=== PATIENT | male | born 1980 | race Caucasian/White ===

== ENCOUNTER 2016-04-07 06:15 | Emergency (ER) | payer MEDICAID ==
[~2016-04-07] VITALS: Ht 167.6 cm; Wt 86.4 kg
[~2016-04-07 06:15] MED LIST: BUPR-93 PO; DIVA500T35 PO
[2016-04-07 06:39] VITALS: BP 129/68
[2016-04-07] MEDS ORDERED: IBUPROFEN 600 MG TABLET PO ONE (06:45)
[2016-04-07] MEDS ORDERED: HYDROCODONE/ACETAMINOPHEN 5-325 MG TABLET PO ONE (06:45)
== END 2016-04-07 07:03 | disposition home or self-care (01) ==
LOC: EMS 06:16
DX: M25.522 Pain in left elbow (principal); F31.9 Bipolar disorder, unspecified; J45.909 Unspecified asthma, uncomplicated; Z88.8 Allergy status to other drugs, medicaments and biological substances
CPT/HCPCS: 29105; 99283

== ENCOUNTER 2016-05-17 16:48 | Inpatient (IN) | payer MEDICAID ==
[~2016-05-17] VITALS: Ht 167.6 cm; Wt 88.9 kg
[2016-05-17] MEDS ORDERED: LORazepam 2 MG TABLET PO PRN (17:30)
[2016-05-17 17:51] VITALS: BP 130/80
[2016-05-17] MEDS ORDERED: -PHARMACY VACCINE NOTE- MISC ONE ×2 (20:00)
[2016-05-17] MEDS: ZOLPIDEM TARTRATE 10 MG TABLET PO PRN (22:43)
[2016-05-18 05:56] VITALS: BP 136/60
[2016-05-18 08:28] LABS: BASOPHILS % (AUTO) 0.6 % (0.0-2.0); EOSINOPHILS % (AUTO) 2.2 % (1.0-6.0); HEMATOCRIT 41.1 % (41-53); HEMOGLOBIN 13.3 g/dL (13.5-17.5); LYMPHOCYTES # (AUTO) 2.5 K/uL (1.0-4.8); LYMPHOCYTES % (AUTO) 43.1 % (22.0-44.0); MEAN CORPUSCULAR HEMOGLOBIN 27.1 pg (26.0-34.0); MEAN CORPUSCULAR HGB CONC 32.4 G/dL (31.0-37.0); MEAN CORPUSCULAR VOLUME 84 fL (80-100); MONOCYTES # (AUTO) 0.4 K/uL (0.1-1.0); MONOCYTES % (AUTO) 7.1 % (2.0-9.0); NEUTROPHILS # (AUTO) 2.7 K/uL (1.8-7.7); PLATELET COUNT (AUTO) 199 K/uL (150-450); RED BLOOD CELL COUNT(AUTO) 4.92 MIL/uL (4.50-5.90); RED CELL DISTRIBUTION WIDTH 12.7 % (11.5-14.5); WHITE BLOOD COUNT (AUTO) 5.8 K/uL (4.5-11.0)
[2016-05-18 08:52] LABS: HEMOGLOBIN A1C 6.1 % (4.5-6.2)
[2016-05-18 09:00] VITALS: BP 129/68
[2016-05-18] MEDS ORDERED: MAG HYDROX/AL HYDROX/SIMETH ES 30 ML SUSPENSION UDCUP PO PRN (09:15)
[2016-05-18] MEDS ORDERED: ALBUTEROL SULFATE HFA 90 MCG/PUFF 8 GM INHALER IH PRN (09:15)
[2016-05-18] MEDS ORDERED: MAGNESIUM HYDROXIDE SUSPENSION 30 ML UDCUP PO PRN (09:15)
[2016-05-18] MEDS ORDERED: CloNIDine HCL 0.1 MG TABLET PO PRN (09:15)
[2016-05-18] MEDS ORDERED: PETROLATUM,WHITE 71 GM JELLY TP PRN (09:15)
[2016-05-18] MEDS ORDERED: LOPERAMIDE HCL 2 MG CAPSULE PO PRN (09:15)
[2016-05-18] MEDS ORDERED: BACITRACIN 28.4 GM OINTMENT TP PRN (09:15)
[2016-05-18] MEDS ORDERED: BENZOCAINE/MENTHOL LOZENGE MM PRN (09:15)
[2016-05-18] MEDS ORDERED: ACETAMINOPHEN 325 MG TABLET PO PRN (09:15)
[2016-05-18] MEDS ORDERED: ONDANSETRON HCL 4 MG TABLET PO PRN (09:15)
[2016-05-18 09:25] LABS: ALANINE AMINOTRANSFERASE 283 U/L (12-78); ALBUMIN 3.7 g/dL (3.4-5.0); ANION GAP 8 mmol/L (8-16); ASPARTATE AMINOTRANSFERASE 115 U/L (15-37); BILIRUBIN,TOTAL 0.7 mg/dL (0.1-1.0); CALCIUM, TOTAL 9.1 mg/dL (8.8-10.5); CARBON DIOXIDE 30 mmol/L (22-29); CHLORIDE 106 mmol/L (98-107); CHOL/HDL RATIO 4.5 (4.2-7.3); GLOMERULAR FILTR. RATE CALC > 60 mL/min (>60); POTASSIUM 4.4 mmol/L (3.5-5.1); SODIUM SERUM 144 mmol/L (136-145); THYROID STIMULATING HORMONE 1.59 uIU/mL (0.36-3.74); TOTAL PROTEIN, SERUM 7.4 g/dL (6.4-8.2); UREA NITROGEN, BLOOD 11 mg/dL (7-18)
[2016-05-18 16:00] VITALS: BP 117/78
[2016-05-18] MEDS: IBUPROFEN 600 MG TABLET PO PRN (18:11)
[2016-05-18] MEDS: DIVALPROEX SODIUM 500 MG ER TABLET PO SCH (20:49)
[2016-05-18] MEDS: ZOLPIDEM TARTRATE 10 MG TABLET PO PRN (22:15)
[2016-05-19 06:00] VITALS: BP 130/82
[2016-05-19 08:52] VITALS: BP 120/68
[2016-05-19] MEDS: BuPROPion HCL XL 150 MG ER TABLET PO SCH (09:26)
[2016-05-19] MEDS: IBUPROFEN 600 MG TABLET PO PRN ×2 (10:57→17:24)
[2016-05-19 16:18] VITALS: BP 118/66
[2016-05-19 17:25] VITALS: BP 130/78
[2016-05-19] MEDS: ZOLPIDEM TARTRATE 10 MG TABLET PO PRN (20:39)
[2016-05-19] MEDS: DIVALPROEX SODIUM 500 MG ER TABLET PO SCH (20:39)
[2016-05-20 06:33] VITALS: BP 133/72
[2016-05-20] MEDS: IBUPROFEN 600 MG TABLET PO PRN (07:00)
[2016-05-20 07:47] LABS: BASOPHILS % (AUTO) 0.7 % (0.0-2.0); EOSINOPHILS % (AUTO) 1.8 % (1.0-6.0); HEMATOCRIT 39.5 % (41-53); LYMPHOCYTES # (AUTO) 2.7 K/uL (1.0-4.8); LYMPHOCYTES % (AUTO) 44.2 % (22.0-44.0); MEAN CORPUSCULAR HEMOGLOBIN 27.2 pg (26.0-34.0); MEAN CORPUSCULAR HGB CONC 32.8 G/dL (31.0-37.0); MEAN CORPUSCULAR VOLUME 83 fL (80-100); MONOCYTES # (AUTO) 0.4 K/uL (0.1-1.0); MONOCYTES % (AUTO) 6.4 % (2.0-9.0); NEUTROPHILS # (AUTO) 2.9 K/uL (1.8-7.7); NEUTROPHILS % (AUTO) 46.9 % (40.0-70.0); PLATELET COUNT (AUTO) 213 K/uL (150-450); RED BLOOD CELL COUNT(AUTO) 4.77 MIL/uL (4.50-5.90); RED CELL DISTRIBUTION WIDTH 12.6 % (11.5-14.5); WHITE BLOOD COUNT (AUTO) 6.1 K/uL (4.5-11.0)
[2016-05-20 08:23] VITALS: BP 131/83
[2016-05-20 09:10] LABS: ALANINE AMINOTRANSFERASE 209 U/L (12-78); ALBUMIN 3.6 g/dL (3.4-5.0); ANION GAP 9 mmol/L (8-16); ASPARTATE AMINOTRANSFERASE 48 U/L (15-37); BILIRUBIN,TOTAL 0.5 mg/dL (0.1-1.0); CALCIUM, TOTAL 8.9 mg/dL (8.8-10.5); CARBON DIOXIDE 27 mmol/L (22-29); CHLORIDE 111 mmol/L (98-107); CREATININE 0.87 mg/dL (0.60-1.30); GLOMERULAR FILTR. RATE CALC > 60 mL/min (>60); POTASSIUM 4.5 mmol/L (3.5-5.1); SODIUM SERUM 147 mmol/L (136-145); TOTAL PROTEIN, SERUM 7.4 g/dL (6.4-8.2); UREA NITROGEN, BLOOD 14 mg/dL (7-18); VALPROIC ACID 88 mcg/mL (50-100)
[2016-05-20] MEDS: BuPROPion HCL XL 150 MG ER TABLET PO SCH (09:13)
[2016-05-20 16:27] VITALS: BP 134/87
== END 2016-05-20 16:30 | disposition home or self-care (01) | DRG 750 ==
LOC: B2S 17:50 → EDSTATUS 18:47 → B3A 05-18 17:19
PROVIDERS: ADMIT Psychiatry & Neurology Child & Adolescent Psychiatry; ATTEND Psychiatry & Neurology Child & Adolescent Psychiatry
DX: F25.0 Schizoaffective disorder, bipolar type (principal); Z91.14 Patient's other noncompliance with medication regimen; F20.0 Paranoid schizophrenia; F60.3 Borderline personality disorder; G47.00 Insomnia, unspecified; J45.909 Unspecified asthma, uncomplicated; K59.00 Constipation, unspecified; Z81.8 Family history of other mental and behavioral disorders; Z91.5 Personal history of self-harm; Z88.8 Allergy status to other drugs, medicaments and biological substances
CPT/HCPCS: 83036; 84439; 84443

== ENCOUNTER 2016-05-22 15:11 | Emergency (ER) | payer MEDICAID ==
[~2016-05-22] VITALS: Ht 167.6 cm; Wt 90.0 kg
[2016-05-22] MEDS ORDERED: OxyCODONE HCL/ACETAMINOPHEN 5-325 MG TABLET PO ONE (18:00)
[2016-05-22 18:32] VITALS: BP 121/74
== END 2016-05-22 18:52 | disposition home or self-care (01) ==
LOC: EMS 15:12
DX: S46.912A Strain of unspecified muscle, fascia and tendon at shoulder and upper arm level, left arm, initial encounter (principal); G89.29 Other chronic pain; J45.909 Unspecified asthma, uncomplicated; Z88.8 Allergy status to other drugs, medicaments and biological substances; X58.XXXA Exposure to other specified factors, initial encounter; Y93.89 Activity, other specified; Y92.89 Other specified places as the place of occurrence of the external cause; Y99.8 Other external cause status
CPT/HCPCS: 99282

== ENCOUNTER 2016-07-07 12:04 | Emergency (ER) | payer MEDICAID, OTHER ==
[~2016-07-07] VITALS: Ht 160 cm; Wt 84.0 kg
[2016-07-07] MEDS ORDERED: ONDANSETRON HCL 4 MG/2 ML VIAL IVP ONE (12:45)
[2016-07-07] MEDS ORDERED: SODIUM CHLORIDE 0.9% 1,000 ML IV ONE (12:45)
[2016-07-07 12:57] LABS: BASOPHILS % (AUTO) 0.5 % (0.0-2.0); EOSINOPHILS % (AUTO) 0.4 % (1.0-6.0); HEMOGLOBIN 14.6 g/dL (13.5-17.5); LYMPHOCYTES # (AUTO) 1.4 K/uL (1.0-4.8); LYMPHOCYTES % (AUTO) 24.2 % (22.0-44.0); MEAN CORPUSCULAR HEMOGLOBIN 26.9 pg (26.0-34.0); MEAN CORPUSCULAR HGB CONC 32.4 G/dL (31.0-37.0); MEAN CORPUSCULAR VOLUME 83 fL (80-100); MONOCYTES # (AUTO) 0.4 K/uL (0.1-1.0); MONOCYTES % (AUTO) 6.7 % (2.0-9.0); NEUTROPHILS # (AUTO) 3.9 K/uL (1.8-7.7); NEUTROPHILS % (AUTO) 68.2 % (40.0-70.0); PLATELET COUNT (AUTO) 193 K/uL (150-450); RED BLOOD CELL COUNT(AUTO) 5.41 MIL/uL (4.50-5.90); RED CELL DISTRIBUTION WIDTH 13.8 % (11.5-14.5); WHITE BLOOD COUNT (AUTO) 5.8 K/uL (4.5-11.0)
[2016-07-07 13:09] LABS: ANION GAP 10 mmol/L (8-16); CALCIUM, TOTAL 9.8 mg/dL (8.8-10.5); CARBON DIOXIDE 29 mmol/L (22-29); CHLORIDE 103 mmol/L (98-107); CREATININE 1.02 mg/dL (0.60-1.30); GLOMERULAR FILTR. RATE CALC > 60 mL/min (>60); POTASSIUM 4.4 mmol/L (3.5-5.1); SODIUM SERUM 142 mmol/L (136-145); UREA NITROGEN, BLOOD 15 mg/dL (7-18)
[2016-07-07 13:24] LABS: GLUCOSE, URINE (UA) NEGATIVE (NEGATIVE); KETONES,URINE 15 mg/dL (NEGATIVE); LEUKOCYTE ESTERASE ,URINE SMALL (NEGATIVE); OCCULT BLOOD,URINE NEGATIVE (NEGATIVE); PROTEIN,URINE TRACE (NEGATIVE)
[2016-07-07 13:33] LABS: ALANINE AMINOTRANSFERASE 149 U/L (12-78); ALBUMIN 4.2 g/dL (3.4-5.0); ASPARTATE AMINOTRANSFERASE 75 U/L (15-37); BILIRUBIN,TOTAL 0.8 mg/dL (0.1-1.0); CREATINE KINASE, TOTAL 169 U/L (39-308); TOTAL PROTEIN, SERUM 8.8 g/dL (6.4-8.2); VALPROIC ACID 101 mcg/mL (50-100)
[2016-07-07 13:35] LABS: CREATINE KINASE MB < 0.5 ng/mL (0-5)
[2016-07-07 13:37] LABS: ADD UA MICROSCOPIC YES; APPEARANCE,URINE HAZY (CLEAR)
[2016-07-07 13:38] LABS: RBC,URINE None Seen /HPF (0-2)
[2016-07-07 13:40] LABS: SQUAMOUS EPITHELIAL CELL,UR Few /LPF (None Seen)
[2016-07-07] MEDS ORDERED: CefTRIAXone 1 GM/DEXTROSE 50 ML IV ONE (14:30)
[2016-07-07 14:55] VITALS: BP 126/79
== END 2016-07-07 16:40 | disposition home or self-care (01) ==
LOC: EMS 12:07
DX: T42.6X1A Poisoning by other antiepileptic and sedative-hypnotic drugs, accidental (unintentional), initial encounter (principal); J45.909 Unspecified asthma, uncomplicated; R11.2 Nausea with vomiting, unspecified; Z88.8 Allergy status to other drugs, medicaments and biological substances; Y92.89 Other specified places as the place of occurrence of the external cause
CPT/HCPCS: 36415; 71010; 80053; 80164; 81001; 82550; 82553; 83690; 84484; 85025; 87086; 93005; 96361; 96365; 96375; 99285; J0696; J2405; J7030

== ENCOUNTER 2016-07-23 16:31 | Emergency (ER) | payer OTHER ==
[~2016-07-23] VITALS: Ht 167.6 cm; Wt 85.0 kg
[2016-07-23 19:03] LABS: BASOPHILS % (AUTO) 0.5 % (0.0-2.0); HEMATOCRIT 40.4 % (41-53); HEMOGLOBIN 13.1 g/dL (13.5-17.5); LYMPHOCYTES # (AUTO) 2.7 K/uL (1.0-4.8); LYMPHOCYTES % (AUTO) 40.9 % (22.0-44.0); MEAN CORPUSCULAR HGB CONC 32.4 G/dL (31.0-37.0); MEAN CORPUSCULAR VOLUME 83 fL (80-100); MONOCYTES # (AUTO) 0.5 K/uL (0.1-1.0); MONOCYTES % (AUTO) 8.3 % (2.0-9.0); NEUTROPHILS # (AUTO) 3.2 K/uL (1.8-7.7); NEUTROPHILS % (AUTO) 49.3 % (40.0-70.0); PLATELET COUNT (AUTO) 168 K/uL (150-450); RED BLOOD CELL COUNT(AUTO) 4.84 MIL/uL (4.50-5.90); RED CELL DISTRIBUTION WIDTH 14.1 % (11.5-14.5); WHITE BLOOD COUNT (AUTO) 6.5 K/uL (4.5-11.0)
[2016-07-23 19:14] LABS: ANION GAP 9 mmol/L (8-16); CALCIUM, TOTAL 9.1 mg/dL (8.8-10.5); CARBON DIOXIDE 29 mmol/L (22-29); CHLORIDE 105 mmol/L (98-107); CREATININE 0.92 mg/dL (0.60-1.30); GLOMERULAR FILTR. RATE CALC > 60 mL/min (>60); SODIUM SERUM 143 mmol/L (136-145); UREA NITROGEN, BLOOD 14 mg/dL (7-18)
[2016-07-23 19:21] LABS: ALANINE AMINOTRANSFERASE 105 U/L (12-78); ALBUMIN 3.8 g/dL (3.4-5.0); ASPARTATE AMINOTRANSFERASE 40 U/L (15-37); BILIRUBIN,TOTAL 0.2 mg/dL (0.1-1.0); TOTAL PROTEIN, SERUM 7.9 g/dL (6.4-8.2)
[2016-07-23 19:34] LABS: VALPROIC ACID 64 mcg/mL (50-100)
[2016-07-23 20:02] VITALS: BP 132/68
[2016-07-23] MEDS ORDERED: LOPERAMIDE HCL 2 MG CAPSULE PO ONE (20:45)
== END 2016-07-23 21:08 | disposition home or self-care (01) ==
LOC: EMS 16:32
DX: R19.7 Diarrhea, unspecified (principal); J45.909 Unspecified asthma, uncomplicated; Z88.8 Allergy status to other drugs, medicaments and biological substances
CPT/HCPCS: 99284

== ENCOUNTER 2016-08-06 10:57 | Emergency (ER) | payer OTHER ==
[~2016-08-06] VITALS: Ht 167.6 cm; Wt 82.3 kg
[2016-08-06 11:16] VITALS: BP 119/75
[2016-08-06] MEDS ORDERED: HYDROCODONE/ACETAMINOPHEN 10-325 MG TABLET PO ONE (11:30)
[2016-08-06] MEDS ORDERED: KETOROLAC TROMETHAMINE 60 MG/2 ML VIAL IM ONE (11:30)
== END 2016-08-06 12:03 | disposition home or self-care (01) ==
LOC: EMS 10:59
DX: S33.5XXA Sprain of ligaments of lumbar spine, initial encounter (principal); M54.5 Low back pain; M62.838 Other muscle spasm; F41.9 Anxiety disorder, unspecified; F31.9 Bipolar disorder, unspecified; J45.909 Unspecified asthma, uncomplicated; Z88.8 Allergy status to other drugs, medicaments and biological substances; Z90.49 Acquired absence of other specified parts of digestive tract; V89.0XXA Person injured in unspecified motor-vehicle accident, nontraffic, initial encounter; Y93.89 Activity, other specified; Y92.413 State road as the place of occurrence of the external cause; Y99.9 Unspecified external cause status
CPT/HCPCS: 96372; 99283; J1885

== ENCOUNTER 2016-08-13 19:37 | Emergency (ER) | payer OTHER ==
[~2016-08-13] VITALS: Ht 167.6 cm; Wt 84.0 kg
[2016-08-13] MEDS ORDERED: NAPR-58 PO (19:49)
[2016-08-13] MEDS ORDERED: BACL10TA PO (19:49)
[2016-08-13] MEDS ORDERED: KETOROLAC TROMETHAMINE 30 MG/ML VIAL IM ONE (20:45)
[2016-08-13 21:18] VITALS: BP 125/69
== END 2016-08-13 21:24 | disposition home or self-care (01) ==
LOC: EDUNIT# 19:37 → EMS 19:39
DX: M54.5 Low back pain (principal); G89.29 Other chronic pain; J45.909 Unspecified asthma, uncomplicated; Z88.8 Allergy status to other drugs, medicaments and biological substances; V89.2XXA Person injured in unspecified motor-vehicle accident, traffic, initial encounter; Y93.89 Activity, other specified; Y92.89 Other specified places as the place of occurrence of the external cause; Y99.8 Other external cause status
CPT/HCPCS: 96372; 99283; J1885

== ENCOUNTER 2016-09-19 12:50 | Emergency (ER) | payer OTHER ==
[~2016-09-19] VITALS: Ht 172.7 cm; Wt 84.5 kg
[~2016-09-19 12:50] MED LIST changes: +BACL10TA PO; +NAPR-58 PO
[2016-09-19] MEDS ORDERED: ONDANSETRON HCL 4 MG/2 ML VIAL IVP ONE (13:30)
[2016-09-19] MEDS ORDERED: DIPHENOXYLATE/ATROP 2.5-0.025 MG TABLET PO ONE (13:30)
[2016-09-19] MEDS ORDERED: SODIUM CHLORIDE 0.9% 1,000 ML IV ONE (13:30)
[2016-09-19] MEDS ORDERED: ACETAMINOPHEN 500 MG TABLET PO ONE (13:30)
[2016-09-19 13:56] LABS: BASOPHILS # (AUTO) 0.01 K/uL (0.00-0.20); BASOPHILS % (AUTO) 0.1 % (0.0-2.0); EOSINOPHILS # (AUTO) 0.03 K/uL (0.00-0.70); EOSINOPHILS % (AUTO) 0.48 % (1.0-6.0); HEMATOCRIT 37.2 % (41-53); HEMOGLOBIN 12.5 g/dL (13.5-17.5); LYMPHOCYTES # (AUTO) 1.2 K/uL (1.0-4.8); LYMPHOCYTES % (AUTO) 23.9 % (22.0-44.0); MEAN CORPUSCULAR HEMOGLOBIN 28.5 pg (26.0-34.0); MEAN CORPUSCULAR HGB CONC 33.5 G/dL (31.0-37.0); MEAN CORPUSCULAR VOLUME 85 fL (80-100); MONOCYTES # (AUTO) 0.3 K/uL (0.1-1.0); MONOCYTES % (AUTO) 6.6 % (2.0-9.0); NEUTROPHILS # (AUTO) 3.6 K/uL (1.8-7.7); NEUTROPHILS % (AUTO) 68.9 % (40.0-70.0); PLATELET COUNT (AUTO) 106 K/uL (150-450); RED BLOOD CELL COUNT(AUTO) 4.37 MIL/uL (4.50-5.90); RED CELL DISTRIBUTION WIDTH 13.5 % (11.5-14.5); WHITE BLOOD COUNT (AUTO) 5.2 K/uL (4.5-11.0)
[2016-09-19 14:09] VITALS: BP 114/69
[2016-09-19 14:10] LABS: ALANINE AMINOTRANSFERASE 76 U/L (12-78); ALBUMIN 2.9 g/dL (3.4-5.0); ANION GAP 10 mmol/L (8-16); ASPARTATE AMINOTRANSFERASE 37 U/L (15-37); BILIRUBIN,TOTAL 0.3 mg/dL (0.1-1.0); CALCIUM, TOTAL 7.6 mg/dL (8.8-10.5); CARBON DIOXIDE 28 mmol/L (22-29); CHLORIDE 113 mmol/L (98-107); CREATININE 0.77 mg/dL (0.60-1.30); GLOMERULAR FILTR. RATE CALC > 60 mL/min (>60); SODIUM SERUM 151 mmol/L (136-145); TOTAL PROTEIN, SERUM 5.8 g/dL (6.4-8.2); UREA NITROGEN, BLOOD 11 mg/dL (7-18)
[2016-09-19 14:16] LABS: POTASSIUM 2.8 mmol/L (3.5-5.1)
[2016-09-19] MEDS ORDERED: POTASSIUM CHLORIDE 10% 40 MEQ/30 ML LIQUID UDCUP PO ONE (14:30)
== END 2016-09-19 15:03 | disposition home or self-care (01) ==
LOC: EMS 12:52
DX: K52.9 Noninfective gastroenteritis and colitis, unspecified (principal); E87.6 Hypokalemia; R42 Dizziness and giddiness; J45.909 Unspecified asthma, uncomplicated; Z88.8 Allergy status to other drugs, medicaments and biological substances
CPT/HCPCS: 36415; 80053; 85025; 96361; 96374; 99284; J2405; J7030

== ENCOUNTER 2016-10-03 05:25 | Emergency (ER) | payer OTHER ==
[~2016-10-03] VITALS: Ht 167.6 cm; Wt 84.1 kg
[~2016-10-03 05:25] MED LIST changes: -BACL10TA PO; -NAPR-58 PO
[2016-10-03] MEDS ORDERED: ACETAMINOPHEN 325 MG TABLET PO ONE (06:15)
[2016-10-03 06:21] LABS: BASOPHILS # (AUTO) 0.05 K/uL (0.00-0.20); BASOPHILS % (AUTO) 0.8 % (0.0-2.0); EOSINOPHILS # (AUTO) 0.13 K/uL (0.00-0.70); EOSINOPHILS % (AUTO) 1.86 % (1.0-6.0); HEMATOCRIT 39.5 % (41-53); HEMOGLOBIN 13.2 g/dL (13.5-17.5); LYMPHOCYTES # (AUTO) 3.7 K/uL (1.0-4.8); LYMPHOCYTES % (AUTO) 53.2 % (22.0-44.0); MEAN CORPUSCULAR HEMOGLOBIN 28.6 pg (26.0-34.0); MEAN CORPUSCULAR HGB CONC 33.4 G/dL (31.0-37.0); MEAN CORPUSCULAR VOLUME 86 fL (80-100); MONOCYTES # (AUTO) 0.6 K/uL (0.1-1.0); MONOCYTES % (AUTO) 8.5 % (2.0-9.0); NEUTROPHILS # (AUTO) 2.5 K/uL (1.8-7.7); NEUTROPHILS % (AUTO) 35.7 % (40.0-70.0); PLATELET COUNT (AUTO) 166 K/uL (150-450); RED CELL DISTRIBUTION WIDTH 13.9 % (11.5-14.5); WHITE BLOOD COUNT (AUTO) 6.9 K/uL (4.5-11.0)
[2016-10-03 06:29] LABS: ANION GAP 8 mmol/L (8-16); CALCIUM, TOTAL 9.5 mg/dL (8.8-10.5); CARBON DIOXIDE 27 mmol/L (22-29); CHLORIDE 106 mmol/L (98-107); CREATININE 0.94 mg/dL (0.60-1.30); GLOMERULAR FILTR. RATE CALC > 60 mL/min (>60); POTASSIUM 4.6 mmol/L (3.5-5.1); SODIUM SERUM 141 mmol/L (136-145); UREA NITROGEN, BLOOD 17 mg/dL (7-18)
[2016-10-03 06:55] LABS: ALANINE AMINOTRANSFERASE 262 U/L (12-78); ALBUMIN 3.7 g/dL (3.4-5.0); ASPARTATE AMINOTRANSFERASE 97 U/L (15-37); BILIRUBIN,TOTAL 0.3 mg/dL (0.1-1.0); CREATINE KINASE MB 0.9 ng/mL (0-5); CREATINE KINASE, TOTAL 84 U/L (39-308); TOTAL PROTEIN, SERUM 7.7 g/dL (6.4-8.2); VALPROIC ACID 50 mcg/mL (50-100)
[2016-10-03 07:19] VITALS: BP 121/84
== END 2016-10-03 07:21 | disposition home or self-care (01) ==
LOC: EMS 05:26
DX: R07.89 Other chest pain (principal); J45.909 Unspecified asthma, uncomplicated; Z88.8 Allergy status to other drugs, medicaments and biological substances
CPT/HCPCS: 93005; 99285

== ENCOUNTER 2016-10-09 15:24 | Emergency (ER) | payer OTHER ==
[~2016-10-09] VITALS: Ht 167.6 cm; Wt 86.0 kg
[~2016-10-09 15:24] MED LIST changes: -BUPR-93 PO
[2016-10-09 15:27] VITALS: BP 141/81
== END 2016-10-09 18:16 | disposition left against medical advice (07) ==
LOC: EMS 15:32
DX: G43.909 Migraine, unspecified, not intractable, without status migrainosus (principal); J02.9 Acute pharyngitis, unspecified; J45.909 Unspecified asthma, uncomplicated; Z87.891 Personal history of nicotine dependence; Z53.21 Procedure and treatment not carried out due to patient leaving prior to being seen by health care provider

== ENCOUNTER 2016-10-14 20:15 | Emergency (ER) | payer OTHER ==
[~2016-10-14] VITALS: Ht 167.6 cm; Wt 84.1 kg
[2016-10-14] MEDS ORDERED: BUPR-47 PO (20:30)
[2016-10-14 20:43] VITALS: BP 129/82
[2016-10-14] MEDS ORDERED: IBUPROFEN 800 MG TABLET PO ONE (21:00)
== END 2016-10-14 21:40 | disposition home or self-care (01) ==
LOC: EMS 20:19
DX: S63.92XA Sprain of unspecified part of left wrist and hand, initial encounter (principal); F31.9 Bipolar disorder, unspecified; F43.10 Post-traumatic stress disorder, unspecified; J45.909 Unspecified asthma, uncomplicated; F41.9 Anxiety disorder, unspecified; F12.10 Cannabis abuse, uncomplicated; Z90.49 Acquired absence of other specified parts of digestive tract; Z88.8 Allergy status to other drugs, medicaments and biological substances; X58.XXXA Exposure to other specified factors, initial encounter; Y93.89 Activity, other specified; Y92.89 Other specified places as the place of occurrence of the external cause; Y99.9 Unspecified external cause status
CPT/HCPCS: 99282

== ENCOUNTER 2016-12-03 10:27 | Emergency (ER) | payer MEDICAID ==
[~2016-12-03] VITALS: Ht 167.6 cm; Wt 85.0 kg
[~2016-12-03 10:27] MED LIST changes: +BUPR-93 PO; -DIVA500T35 PO; +DIVA500T52 PO; +SIMV-261 PO
[2016-12-03 10:46] VITALS: BP 130/80
== END 2016-12-03 11:40 | disposition left against medical advice (07) ==
LOC: EMS 10:29
DX: Z53.21 Procedure and treatment not carried out due to patient leaving prior to being seen by health care provider (principal)

== ENCOUNTER 2016-12-03 18:09 | Emergency (ER) | payer MEDICAID, OTHER ==
[~2016-12-03] VITALS: Ht 167.6 cm; Wt 85.0 kg
[2016-12-03] MEDS ORDERED: HYDROCODONE/ACETAMINOPHEN 10-325 MG TABLET PO ONE (20:30)
[2016-12-03 21:50] VITALS: BP 127/78
== END 2016-12-03 22:16 | disposition home or self-care (01) ==
LOC: EMS 18:13
DX: S30.0XXA Contusion of lower back and pelvis, initial encounter (principal); F32.9 Major depressive disorder, single episode, unspecified; F43.10 Post-traumatic stress disorder, unspecified; J45.909 Unspecified asthma, uncomplicated; F15.10 Other stimulant abuse, uncomplicated; Z90.49 Acquired absence of other specified parts of digestive tract; W01.0XXA Fall on same level from slipping, tripping and stumbling without subsequent striking against object, initial encounter; Y93.89 Activity, other specified; Y92.89 Other specified places as the place of occurrence of the external cause; Y99.8 Other external cause status
CPT/HCPCS: 99283

== ENCOUNTER 2017-01-03 03:49 | Emergency (ER) | payer OTHER ==
[~2017-01-03] VITALS: Ht 167.6 cm; Wt 88.0 kg
[2017-01-03] MEDS ORDERED: DiphenhydrAMINE HCL 50 MG/ML VIAL IM ONE (05:00)
[2017-01-03] MEDS ORDERED: METOCLOPRAMIDE HCL 5 MG/ML 2 ML VIAL IM ONE (05:00)
[2017-01-03] MEDS ORDERED: KETOROLAC TROMETHAMINE 30 MG/ML VIAL IM ONE (05:00)
[2017-01-03 06:01] VITALS: BP 136/72
== END 2017-01-03 06:22 | disposition home or self-care (01) ==
LOC: EMS 03:51
DX: G43.909 Migraine, unspecified, not intractable, without status migrainosus (principal); J45.909 Unspecified asthma, uncomplicated; F15.10 Other stimulant abuse, uncomplicated; Z90.49 Acquired absence of other specified parts of digestive tract
CPT/HCPCS: 96372; 99284; J1200; J1885; J2765

== ENCOUNTER 2017-01-29 00:45 | Emergency (ER) | payer OTHER ==
[~2017-01-29] VITALS: Ht 167.6 cm; Wt 88.0 kg
[2017-01-29] MEDS ORDERED: ACETAMINOPHEN/CODEINE 300-30 MG TABLET PO ONE (02:00)
[2017-01-29] MEDS ORDERED: BACLOFEN 10 MG TABLET PO ONE (02:00)
[2017-01-29] MEDS ORDERED: ACETAMINOPHEN/CODEINE 300-15 MG TABLET PO ONE (02:00)
[2017-01-29] MEDS ORDERED: KETOROLAC TROMETHAMINE 60 MG/2 ML VIAL IM ONE (02:00)
[2017-01-29 02:07] VITALS: BP 143/95
== END 2017-01-29 02:08 | disposition home or self-care (01) ==
LOC: EMS 00:46
DX: S13.9XXA Sprain of joints and ligaments of unspecified parts of neck, initial encounter (principal); F31.9 Bipolar disorder, unspecified; J45.909 Unspecified asthma, uncomplicated; F15.10 Other stimulant abuse, uncomplicated; Z90.49 Acquired absence of other specified parts of digestive tract; Z88.8 Allergy status to other drugs, medicaments and biological substances; X58.XXXA Exposure to other specified factors, initial encounter; Y93.89 Activity, other specified; Y92.89 Other specified places as the place of occurrence of the external cause; Y99.8 Other external cause status
CPT/HCPCS: 96372; 99283; J1885

== ENCOUNTER 2017-05-05 14:09 | Inpatient (IN) | payer MEDICAID, OTHER ==
[~2017-05-05] VITALS: Ht 167.6 cm; Wt 89.9 kg
[2017-05-05] MEDS ORDERED: BACL10TA PO (14:32)
[2017-05-05] MEDS ORDERED: BENZ-51 PO (14:32)
[2017-05-05] MEDS ORDERED: DIPH25 PO (14:32)
[2017-05-05 15:32] LABS: ANION GAP 11 mmol/L (8-16); CALCIUM, TOTAL 10.1 mg/dL (8.8-10.5); CARBON DIOXIDE 29 mmol/L (22-29); CHLORIDE 104 mmol/L (98-107); CREATININE 1.01 mg/dL (0.60-1.30); GLOMERULAR FILTR. RATE CALC > 60 mL/min (>60); GLUCOSE,RANDOM 132 mg/dL (70-110); POTASSIUM 4.6 mmol/L (3.5-5.1); SODIUM SERUM 144 mmol/L (136-145); UREA NITROGEN, BLOOD 16 mg/dL (7-18)
[2017-05-05 15:48] LABS: ALANINE AMINOTRANSFERASE 255 U/L (12-78); ALBUMIN 4.3 g/dL (3.4-5.0); ALKALINE PHOSPHATASE 143 U/L (46-116); ASPARTATE AMINOTRANSFERASE 72 U/L (15-37); BILIRUBIN,TOTAL 0.4 mg/dL (0.1-1.0); TOTAL PROTEIN, SERUM 8.7 g/dL (6.4-8.2)
[2017-05-05 15:50] LABS: BASOPHILS % (AUTO) 0.4 % (0.0-2.0); EOSINOPHILS % (AUTO) 0.5 % (1.0-6.0); HEMATOCRIT 46.5 % (41-53); HEMOGLOBIN 15.7 g/dL (13.5-17.5); LYMPHOCYTES # (AUTO) 3.1 K/uL (1.0-4.8); LYMPHOCYTES % (AUTO) 34.2 % (22.0-44.0); MEAN CORPUSCULAR HEMOGLOBIN 27.7 pg (26.0-34.0); MEAN CORPUSCULAR HGB CONC 33.7 G/dL (31.0-37.0); MEAN CORPUSCULAR VOLUME 82 fL (80-100); MONOCYTES # (AUTO) 0.8 K/uL (0.1-1.0); MONOCYTES % (AUTO) 8.3 % (2.0-9.0); NEUTROPHILS # (AUTO) 5.2 K/uL (1.8-7.7); NEUTROPHILS % (AUTO) 56.6 % (40.0-70.0); PLATELET COUNT (AUTO) 270 K/uL (150-450); RED BLOOD CELL COUNT(AUTO) 5.66 MIL/uL (4.50-5.90); RED CELL DISTRIBUTION WIDTH 13.9 % (11.5-14.5)
[2017-05-05] MEDS ORDERED: ZOLPIDEM TARTRATE 10 MG TABLET PO PRN (16:00)
[2017-05-05] MEDS ORDERED: HALOPERIDOL 5 MG TABLET PO PRN (16:00)
[2017-05-05 16:46] LABS: AMPHET/METH SCREEN,URINE NEGATIVE (NEGATIVE); BARBITURATE SCREEN, URINE NEGATIVE (NEGATIVE); BENZODIAZEPINES SCREEN,URINE NEGATIVE (NEGATIVE); CANNABINOID SCREEN,URINE NEGATIVE (NEGATIVE); COCAINE SCREEN,URINE NEGATIVE (NEGATIVE); METHADONE SCREEN, URINE NEGATIVE (NEGATIVE); OPIATE SCREEN,URINE NEGATIVE (NEGATIVE); PHENCYCLIDINE SCREEN,URINE NEGATIVE (NEGATIVE)
[2017-05-05 18:50] VITALS: BP 136/71
[2017-05-05] MEDS ORDERED: INFLUENZA VIRUS VACCINE QVS 2017-18 (3YR+)/PF 60 MCG/0.5 ML SYRINGE IM ONE (19:15)
[2017-05-05] MEDS: DIVALPROEX SODIUM 500 MG ER TABLET PO SCH (20:31)
[2017-05-06 05:56] VITALS: BP 132/81
[2017-05-06 08:15] VITALS: BP 117/82
[2017-05-06 08:35] LABS: FREE T4 (FREE THYROXINE) 0.9 ng/dL (0.76-1.46); THYROID STIMULATING HORMONE 1.52 uIU/mL (0.36-3.74)
[2017-05-06] MEDS: FLUoxetine HCL 20 MG CAPSULE PO SCH (09:01)
[2017-05-06] MEDS: BuPROPion HCL XL 150 MG ER TABLET PO SCH (09:01)
[2017-05-06] MEDS ORDERED: ALBUTEROL SULFATE HFA 90 MCG/PUFF 8 GM INHALER IH PRN (09:15)
[2017-05-06] MEDS ORDERED: PETROLATUM,WHITE 71 GM JELLY TP PRN (09:15)
[2017-05-06] MEDS ORDERED: ACETAMINOPHEN 325 MG TABLET PO PRN (09:15)
[2017-05-06] MEDS ORDERED: BENZOCAINE/MENTHOL LOZENGE MM PRN (09:15)
[2017-05-06] MEDS ORDERED: LOPERAMIDE HCL 2 MG CAPSULE PO PRN (09:15)
[2017-05-06] MEDS ORDERED: MAG HYDROX/AL HYDROX/SIMETH ES 30 ML SUSPENSION UDCUP PO PRN (09:15)
[2017-05-06] MEDS ORDERED: ONDANSETRON HCL 4 MG TABLET PO PRN (09:15)
[2017-05-06] MEDS ORDERED: BACITRACIN 28.4 GM OINTMENT TP PRN (09:15)
[2017-05-06] MEDS ORDERED: MAGNESIUM HYDROXIDE SUSPENSION 30 ML UDCUP PO PRN (09:15)
[2017-05-06] MEDS ORDERED: CloNIDine HCL 0.1 MG TABLET PO PRN (09:15)
[2017-05-06] MEDS ORDERED: IBUPROFEN 600 MG TABLET PO PRN (09:15)
[2017-05-06 16:00] VITALS: BP 119/70
[2017-05-06] MEDS: DIVALPROEX SODIUM 500 MG ER TABLET PO SCH (20:51)
[2017-05-06] MEDS: LORazepam 2 MG TABLET PO PRN (21:12)
[2017-05-07 05:16] VITALS: BP 120/85
[2017-05-07 08:23] VITALS: BP 137/67
[2017-05-07] MEDS: CHOLECALCIFEROL (VIT D3) 1,000 UNITS TABLET PO SCH (09:00)
[2017-05-07] MEDS: BuPROPion HCL XL 150 MG ER TABLET PO SCH (09:00)
[2017-05-07] MEDS: FLUoxetine HCL 20 MG CAPSULE PO SCH (09:00)
[2017-05-07] MEDS: LORazepam 2 MG TABLET PO PRN ×2 (12:22→20:52)
[2017-05-07 16:31] VITALS: BP 120/67
[2017-05-07] MEDS: DIVALPROEX SODIUM 500 MG ER TABLET PO SCH (20:51)
[2017-05-07] MEDS ORDERED: SODIUM CHLORIDE 0.65% 44 ML NASAL SPRAY NASAL SCH (21:00)
[2017-05-08 06:38] VITALS: BP 138/87
[2017-05-08] MEDS: LORazepam 2 MG TABLET PO PRN (08:16)
[2017-05-08] MEDS: SODIUM CHLORIDE 0.65% 44 ML NASAL SPRAY NASAL SCH ×2 (08:16→12:06)
[2017-05-08] MEDS: CHOLECALCIFEROL (VIT D3) 1,000 UNITS TABLET PO SCH (08:16)
[2017-05-08] MEDS: BuPROPion HCL XL 150 MG ER TABLET PO SCH (08:16)
[2017-05-08] MEDS: FLUoxetine HCL 20 MG CAPSULE PO SCH (08:16)
[2017-05-08 08:36] VITALS: BP 126/73
[2017-05-08 09:03] LABS: CHOL/HDL RATIO 4.9 (4.2-7.3)
[2017-05-08] MEDS ORDERED: FLUO-191 PO (16:24)
[2017-05-08] MEDS ORDERED: DIVA500T35 PO (16:24)
[2017-05-08] MEDS ORDERED: BUPR-93 PO (16:25)
[2017-05-08] MEDS ORDERED: SODI44SP18 NS (16:28)
[2017-05-08] MEDS ORDERED: VITAD1000 PO (16:29)
[2017-05-08 16:50] VITALS: BP 129/81
== END 2017-05-08 17:00 | disposition home or self-care (01) | DRG 750 ==
LOC: EMS 14:11 → B3A 17:19
PROVIDERS: ADMIT Psychiatry & Neurology Psychiatry; ATTEND Psychiatry & Neurology Psychiatry
DX: F25.0 Schizoaffective disorder, bipolar type (principal); R45.851 Suicidal ideations; E55.9 Vitamin D deficiency, unspecified; E78.00 Pure hypercholesterolemia, unspecified; E78.5 Hyperlipidemia, unspecified; F43.10 Post-traumatic stress disorder, unspecified; G47.00 Insomnia, unspecified; J45.909 Unspecified asthma, uncomplicated; K59.00 Constipation, unspecified; E66.9 Obesity, unspecified; R73.9 Hyperglycemia, unspecified; F60.3 Borderline personality disorder; J34.89 Other specified disorders of nose and nasal sinuses; Z90.49 Acquired absence of other specified parts of digestive tract; Z68.32 Body mass index [BMI] 32.0-32.9, adult; Z88.8 Allergy status to other drugs, medicaments and biological substances; Z79.899 Other long term (current) drug therapy; Z81.8 Family history of other mental and behavioral disorders
CPT/HCPCS: 80074; 83036; 84439; 84443; 99285; G0480

== ENCOUNTER 2017-06-11 07:02 | Inpatient (IN) | payer MEDICAID, OTHER ==
[~2017-06-11] VITALS: Ht 167.6 cm; Wt 86.2 kg
[~2017-06-11 07:02] MED LIST changes: +DIVA500T35 PO; -DIVA500T52 PO; +FLUO-191 PO; -SIMV-261 PO; +SODI44SP18 NS; +VITAD1000 PO
[2017-06-11] MEDS ORDERED: SIMV-261 PO (07:26)
[2017-06-11 07:56] LABS: ANION GAP 12 mmol/L (8-16); CALCIUM, TOTAL 9.3 mg/dL (8.8-10.5); CARBON DIOXIDE 27 mmol/L (22-29); CHLORIDE 104 mmol/L (98-107); CREATININE 1.02 mg/dL (0.60-1.30); GLOMERULAR FILTR. RATE CALC > 60 mL/min (>60); GLUCOSE,RANDOM 107 mg/dL (70-110); POTASSIUM 3.6 mmol/L (3.5-5.1); SODIUM SERUM 143 mmol/L (136-145); UREA NITROGEN, BLOOD 19 mg/dL (7-18)
[2017-06-11 08:02] LABS: ALANINE AMINOTRANSFERASE 88 U/L (12-78); ALBUMIN 3.8 g/dL (3.4-5.0); ALKALINE PHOSPHATASE 103 U/L (46-116); ASPARTATE AMINOTRANSFERASE 34 U/L (15-37); BILIRUBIN,TOTAL 0.7 mg/dL (0.1-1.0); TOTAL PROTEIN, SERUM 7.9 g/dL (6.4-8.2)
[2017-06-11 08:10] LABS: BASOPHILS % (AUTO) 1.7 % (0.0-2.0); EOSINOPHILS % (AUTO) 1.5 % (1.0-6.0); HEMATOCRIT 36.6 % (41-53); HEMOGLOBIN 12.4 g/dL (13.5-17.5); LYMPHOCYTES # (AUTO) 2.9 K/uL (1.0-4.8); MEAN CORPUSCULAR HGB CONC 33.9 G/dL (31.0-37.0); MEAN CORPUSCULAR VOLUME 82 fL (80-100); MONOCYTES # (AUTO) 0.7 K/uL (0.1-1.0); MONOCYTES % (AUTO) 10.2 % (2.0-9.0); NEUTROPHILS # (AUTO) 2.9 K/uL (1.8-7.7); NEUTROPHILS % (AUTO) 43.6 % (40.0-70.0); PLATELET COUNT (AUTO) 231 K/uL (150-450); RED BLOOD CELL COUNT(AUTO) 4.44 MIL/uL (4.50-5.90); RED CELL DISTRIBUTION WIDTH 13.2 % (11.5-14.5)
[2017-06-11] MEDS ORDERED: HALOPERIDOL 5 MG TABLET PO PRN (08:15)
[2017-06-11 09:21] LABS: AMPHET/METH SCREEN,URINE POSITIVE (NEGATIVE); BARBITURATE SCREEN, URINE NEGATIVE (NEGATIVE); BENZODIAZEPINES SCREEN,URINE NEGATIVE (NEGATIVE); CANNABINOID SCREEN,URINE NEGATIVE (NEGATIVE); COCAINE SCREEN,URINE NEGATIVE (NEGATIVE); METHADONE SCREEN, URINE NEGATIVE (NEGATIVE); OPIATE SCREEN,URINE NEGATIVE (NEGATIVE)
[2017-06-11 09:24] LABS: PHENCYCLIDINE SCREEN,URINE NEGATIVE (NEGATIVE)
[2017-06-11 10:25] VITALS: BP 137/107
[2017-06-11 12:41] VITALS: BP 116/70
[2017-06-11 16:22] VITALS: BP 111/67
[2017-06-11] MEDS: DIVALPROEX SODIUM 500 MG ER TABLET PO SCH (20:22)
[2017-06-11] MEDS: ZOLPIDEM TARTRATE 10 MG TABLET PO PRN (21:40)
[2017-06-12 06:41] VITALS: BP 120/80
[2017-06-12] MEDS: LORazepam 2 MG TABLET PO PRN (08:10)
[2017-06-12 08:16] VITALS: BP 112/63
[2017-06-12] MEDS ORDERED: MAG HYDROX/AL HYDROX/SIMETH ES 30 ML SUSPENSION UDCUP PO PRN (09:00)
[2017-06-12] MEDS ORDERED: CloNIDine HCL 0.1 MG TABLET PO PRN (09:00)
[2017-06-12] MEDS ORDERED: ACETAMINOPHEN 325 MG TABLET PO PRN (09:00)
[2017-06-12] MEDS ORDERED: ALBUTEROL SULFATE HFA 90 MCG/PUFF 8 GM INHALER IH PRN (09:00)
[2017-06-12] MEDS ORDERED: MAGNESIUM HYDROXIDE SUSPENSION 30 ML UDCUP PO PRN (09:00)
[2017-06-12] MEDS ORDERED: LOPERAMIDE HCL 2 MG CAPSULE PO PRN (09:00)
[2017-06-12] MEDS ORDERED: PETROLATUM,WHITE 71 GM JELLY TP PRN (09:00)
[2017-06-12] MEDS ORDERED: BuPROPion HCL XL 150 MG ER TABLET PO SCH (09:00)
[2017-06-12] MEDS ORDERED: ONDANSETRON HCL 4 MG TABLET PO PRN (09:00)
[2017-06-12] MEDS ORDERED: BENZOCAINE/MENTHOL LOZENGE MM PRN (09:00)
[2017-06-12] MEDS ORDERED: BACITRACIN 28.4 GM OINTMENT TP PRN (09:00)
[2017-06-12] MEDS ORDERED: FLUoxetine HCL 20 MG CAPSULE PO SCH (09:00)
[2017-06-12] MEDS ORDERED: IBUPROFEN 600 MG TABLET PO PRN (09:00)
[2017-06-12] MEDS: CHOLECALCIFEROL (VIT D3) 1,000 UNITS TABLET PO SCH (09:06)
[2017-06-12 10:38] LABS: CHOL/HDL RATIO 5.6 (4.2-7.3)
[2017-06-12] MEDS: ESCITALOPRAM OXALATE 10 MG TABLET PO SCH (13:28)
[2017-06-12 16:11] VITALS: BP 123/71
[2017-06-12] MEDS: DIVALPROEX SODIUM 500 MG ER TABLET PO SCH (20:34)
[2017-06-12] MEDS: ZOLPIDEM TARTRATE 10 MG TABLET PO PRN (21:45)
[2017-06-13 06:06] VITALS: BP 110/65
[2017-06-13 08:45] VITALS: BP 129/80
[2017-06-13] MEDS: CHOLECALCIFEROL (VIT D3) 1,000 UNITS TABLET PO SCH (09:18)
[2017-06-13] MEDS: ESCITALOPRAM OXALATE 10 MG TABLET PO SCH (09:18)
[2017-06-13 16:00] VITALS: BP 116/75
[2017-06-13] MEDS: LORazepam 2 MG TABLET PO PRN (16:49)
[2017-06-13] MEDS: DIVALPROEX SODIUM 500 MG ER TABLET PO SCH (20:30)
[2017-06-14 06:49] VITALS: BP 126/79
[2017-06-14 08:00] VITALS: BP 122/64
[2017-06-14] MEDS: CHOLECALCIFEROL (VIT D3) 1,000 UNITS TABLET PO SCH (09:00)
[2017-06-14] MEDS: ESCITALOPRAM OXALATE 10 MG TABLET PO SCH (09:02)
[2017-06-14] MEDS ORDERED: DIVA500T52 PO (10:59)
[2017-06-14] MEDS ORDERED: ESCI5TAB PO (10:59)
[2017-06-14] MEDS ORDERED: VITAD1000 PO (11:55)
== END 2017-06-14 13:00 | disposition home or self-care (01) | DRG 750 ==
LOC: EMS 07:03 → B3A 08:34
DX: F25.1 Schizoaffective disorder, depressive type (principal); R45.851 Suicidal ideations; E55.9 Vitamin D deficiency, unspecified; F15.10 Other stimulant abuse, uncomplicated; E78.00 Pure hypercholesterolemia, unspecified; E66.9 Obesity, unspecified; F43.10 Post-traumatic stress disorder, unspecified; F60.2 Antisocial personality disorder; G47.00 Insomnia, unspecified; J45.909 Unspecified asthma, uncomplicated; F12.90 Cannabis use, unspecified, uncomplicated; K59.00 Constipation, unspecified; Z79.899 Other long term (current) drug therapy; Z90.49 Acquired absence of other specified parts of digestive tract; Z68.30 Body mass index [BMI] 30.0-30.9, adult; Z88.8 Allergy status to other drugs, medicaments and biological substances
CPT/HCPCS: 99285; G0480

== ENCOUNTER 2017-09-26 02:43 | Emergency (ER) | payer MEDICAID, OTHER ==
[~2017-09-26] VITALS: Ht 167.6 cm; Wt 86.4 kg
[~2017-09-26 02:43] MED LIST changes: -BUPR-93 PO; +DIVA-78 PO; -DIVA500T35 PO; +NALT50TA6 PO; +OLAN7.5T2 PO; -SODI44SP18 NS; -VITAD1000 PO
[2017-09-26] MEDS ORDERED: DiphenhydrAMINE HCL 50 MG/ML VIAL IM ONE (04:45)
[2017-09-26] MEDS ORDERED: LORazepam 2 MG/ML VIAL IM ONE (04:45)
[2017-09-26] MEDS ORDERED: HALOPERIDOL LACTATE 5 MG/ML VIAL IM ONE (04:45)
[2017-09-26 07:19] VITALS: BP 93/70
== END 2017-09-26 08:58 | disposition home or self-care (01) ==
LOC: EMS 02:43
DX: F20.0 Paranoid schizophrenia (principal); J45.909 Unspecified asthma, uncomplicated; E78.00 Pure hypercholesterolemia, unspecified; F12.90 Cannabis use, unspecified, uncomplicated; F15.90 Other stimulant use, unspecified, uncomplicated; Z88.8 Allergy status to other drugs, medicaments and biological substances
CPT/HCPCS: 96372; 99284; J1200; J1630; J2060

== ENCOUNTER 2017-11-25 16:56 | Emergency (ER) | payer OTHER ==
[~2017-11-25] VITALS: Ht 167.6 cm; Wt 83.2 kg
[2017-11-25] MEDS ORDERED: MIRT15 PO (18:06)
[2017-11-25] MEDS ORDERED: SIMV-261 PO (18:06)
[2017-11-25 18:37] LABS: BASOPHILS % (AUTO) 0.7 % (0.0-2.0); EOSINOPHILS % (AUTO) 2.1 % (1.0-6.0); HEMATOCRIT 39.1 % (41-53); LYMPHOCYTES # (AUTO) 3.6 K/uL (1.0-4.8); LYMPHOCYTES % (AUTO) 54.3 % (22.0-44.0); MEAN CORPUSCULAR HEMOGLOBIN 27.4 pg (26.0-34.0); MEAN CORPUSCULAR HGB CONC 33.3 G/dL (31.0-37.0); MEAN CORPUSCULAR VOLUME 82 fL (80-100); MONOCYTES # (AUTO) 0.4 K/uL (0.1-1.0); MONOCYTES % (AUTO) 6.5 % (2.0-9.0); NEUTROPHILS # (AUTO) 2.4 K/uL (1.8-7.7); NEUTROPHILS % (AUTO) 36.4 % (40.0-70.0); PLATELET COUNT (AUTO) 195 K/uL (150-450); RED BLOOD CELL COUNT(AUTO) 4.75 MIL/uL (4.50-5.90); RED CELL DISTRIBUTION WIDTH 14.4 % (11.5-14.5)
[2017-11-25 19:14] LABS: ANION GAP 9 mmol/L (8-16); CALCIUM, TOTAL 9.4 mg/dL (8.8-10.5); CARBON DIOXIDE 28 mmol/L (22-29); CHLORIDE 109 mmol/L (98-107); CREATININE 0.87 mg/dL (0.60-1.30); GLOMERULAR FILTR. RATE CALC > 60 mL/min (>60); GLUCOSE,RANDOM 99 mg/dL (70-110); POTASSIUM 3.7 mmol/L (3.5-5.1); SODIUM SERUM 146 mmol/L (136-145); UREA NITROGEN, BLOOD 14 mg/dL (7-18)
[2017-11-25 19:20] LABS: ALANINE AMINOTRANSFERASE 126 U/L (12-78); ALBUMIN 3.5 g/dL (3.4-5.0); ALKALINE PHOSPHATASE 102 U/L (46-116); ASPARTATE AMINOTRANSFERASE 35 U/L (15-37); BILIRUBIN,TOTAL 0.3 mg/dL (0.1-1.0); TOTAL PROTEIN, SERUM 7.5 g/dL (6.4-8.2); VALPROIC ACID 77 mcg/mL (50-100)
[2017-11-25] MEDS ORDERED: LORazepam 2 MG TABLET PO ONE (21:30)
[2017-11-25 21:56] VITALS: BP 125/81
== END 2017-11-25 21:58 | disposition home or self-care (01) ==
LOC: EMS 16:58
DX: F31.9 Bipolar disorder, unspecified (principal); F12.90 Cannabis use, unspecified, uncomplicated; F15.90 Other stimulant use, unspecified, uncomplicated; F41.9 Anxiety disorder, unspecified; J45.909 Unspecified asthma, uncomplicated; E78.00 Pure hypercholesterolemia, unspecified; F43.10 Post-traumatic stress disorder, unspecified; Z88.8 Allergy status to other drugs, medicaments and biological substances; Z79.899 Other long term (current) drug therapy
CPT/HCPCS: 36415; 80053; 80164; 85025; 99284; G0480